=== PATIENT | male | born 1950 | race African-American/Black ===

== ENCOUNTER 2018-12-03 12:51 | Emergency (ER) | payer MEDICARE, MEDICAID ==
[~2018-12-03] VITALS: Ht 175.3 cm; Wt 75.0 kg
[2018-12-03] MEDS ORDERED: ACETAMINOPHEN 325MG TABLET PO STA (16:51)
[2018-12-03] MEDS ORDERED: COLCHICINE 0.6MG TABLET PO ONE (17:00)
[2018-12-03] MEDS ORDERED: DICLOFENAC SODIUM 75MG DR (EC) TABLET PO ONE (17:00)
[2018-12-03] MEDS ORDERED: MORPHINE SULFATE 4 MG/ML CPJ (NOT FOR IM USE) IV ONE (17:00)
[2018-12-03] MEDS ORDERED: SODIUM CHLORIDE 0.9% 1000ML BAG (SEPSIS BOLUS) IV ONE (17:00)
[2018-12-03 17:35] LABS: COLOR URINE ORANGE (YELLOW); KETONES URINE 2+ (NEGATIVE); LEUKOCYTE ESTERASE URINE 1+ (NEGATIVE); NITRITE URINE POSITIVE (NEGATIVE); OCCULT BLOOD URINE NEGATIVE (NEGATIVE); PH URINE 5.5 (4.5-8.0); PROTEIN URINE 2+ (NEGATIVE); SPECIFIC GRAVITY URINE 1.026 (1.005-1.030)
[2018-12-03 17:51] LABS: CLARITY URINE HAZY (CLEAR)
[2018-12-03 17:57] LABS: *AMPHETAMINES SCREEN URINE NEGATIVE (NEGATIVE); *BARBITURATES SCREEN URINE NEGATIVE (NEGATIVE); *BENZODIAZEPINES SCREEN URINE NEGATIVE (NEGATIVE); *COCAINE SCREEN URINE NEGATIVE (NEGATIVE); METHADONE URINE SCREEN NEGATIVE (NEGATIVE); OPIATES URINE SCREEN NEGATIVE (NEGATIVE); PHENCYCLIDINE URINE SCREEN NEGATIVE (NEGATIVE)
[2018-12-03 17:58] LABS: CANNABINOID URINE SCREEN NEGATIVE (NEGATIVE)
[2018-12-03 18:06] LABS: BASOPHILS % 0.3 % (0.0-2.0); EOSINOPHILS % 0.1 % (0.0-5.0); HEMATOCRIT. 41.2 % (42.0-52.0); HEMOGLOBIN. 14.4 g/dL (14.0-18.0); LYMPHOCYTES % 10.8 % (20.0-50.0); MEAN CORPUSCULAR VOLUME 103.3 fL (80.0-94.0); MEAN PLATELET VOLUME 6.9 fl (7.4-10.4); MONOCYTES % 11.1 % (2.0-8.0); NEUTROPHILS % 77.7 % (40.0-76.0); PLATELET 285 x1000/uL (130-400); RED BLOOD CELL COUNT 3.99 mill/uL (4.7-6.1); RED CELL DISTRIBUTION WIDTH 14.1 % (11.6-14.6)
[2018-12-03 18:12] LABS: CHLORIDE 102 mEq/L (98-107)
[2018-12-03] MEDS ORDERED: POTASSIUM CHLORIDE 20MEQ TABLET SR PO ONE ×2 (19:15→21:30)
[2018-12-03 23:11] VITALS: BP 142/86
== END 2018-12-03 23:18 | disposition home or self-care (01) ==
LOC: ER 12:51
DX: M25.532 Pain in left wrist (principal); M79.672 Pain in left foot; N39.0 Urinary tract infection, site not specified; E87.6 Hypokalemia; M10.9 Gout, unspecified; I10 Essential (primary) hypertension
CPT/HCPCS: 36415; 80053; 80305; 81003; 83880; 84484; 85025; 87040; 93005; 96374; 96375; 99284; J2270; J7030

== ENCOUNTER 2024-01-21 14:21 | Emergency (ER) | payer MEDICARE, MEDICAID ==
[~2024-01-21] VITALS: Ht 160 cm; Wt 76.0 kg
[2024-01-21 14:24] VITALS: O2SAT 100
[2024-01-21 14:27] VITALS: BP 131/91; PULSE 100; RESP 16; O2SAT 99
[2024-01-21] MEDS ORDERED: ACETAMINOPHEN 500MG TABLET PO ONE (16:00)
[2024-01-21] MEDS ORDERED: ACET-2708 MT (20:35)
[2024-01-21 20:48] VITALS: TEMP 98.4
[2024-01-21] MEDS: ACETAMINOPHEN 500MG TABLET PO NR (20:48)
== END 2024-01-21 20:48 | disposition home or self-care (01) ==
LOC: ER 14:21
DX: M25.512 Pain in left shoulder (principal); I10 Essential (primary) hypertension; Y04.2XXA Assault by strike against or bumped into by another person, initial encounter; Y93.89 Activity, other specified; Y92.89 Other specified places as the place of occurrence of the external cause; Y99.8 Other external cause status
CPT/HCPCS: 73000; 73030; 73060; 99284; A4565